=== PATIENT | male | born 1960 | race Caucasian/White ===

== ENCOUNTER 2019-10-27 15:41 | Inpatient (IN) | payer MEDICAID ==
[~2019-10-27] VITALS: Ht 167.6 cm; Wt 65.2 kg
[2019-10-27] MEDS ORDERED: ACETAMINOPHEN 500 MG TABLET ONE (16:09)
[2019-10-27] MEDS ORDERED: ACETAMINOPHEN 500 MG TABLET PO ONE (16:30)
[2019-10-27] MEDS ORDERED: SODIUM CHLORIDE FLUSH 10ML SYR IVF ONE (16:30)
[2019-10-27 16:48] LABS: BASOPHILS # (AUTO) 0.04 x10^3/uL (0-0.1); BASOPHILS % (AUTO) 0 % (0-1); EOSINOPHILS # (AUTO) 0.08 x10^3/uL (0-0.4); EOSINOPHILS % (AUTO) 1 % (1-7); LYMPHOCYTES % (AUTO) 12 % (22-44); MD NO; MEAN CORPUSCULAR HEMOGLOBIN 32.6 pg (27.5-34.5); MEAN CORPUSCULAR HGB CONC 33.4 g/dL (33.2-36.2); MEAN CORPUSCULAR VOLUME 97.6 fL (81-97); MEAN PLATELET VOLUME 8.1 fL (7.4-10.4); MONOCYTES # (AUTO) 0.58 x10^3/uL (0.2-0.8); MONOCYTES % (AUTO) 6 % (2-9); NEUTROPHILS # (AUTO) 8.49 x10^3/uL (1.8-6.8); NEUTROPHILS % (AUTO) 81 % (42-75); PLATELET COUNT 176 x10^3/uL (130-400); RED BLOOD COUNT 4.81 x10^6/uL (4.38-5.82); RED CELL DISTRIBUTION WIDTH 13.9 % (9.4-14.8)
[2019-10-27 17:01] LABS: ALANINE AMINOTRANSFERASE 98 U/L (12-78); ALBUMIN 2.8 g/dL (3.4-5.0); ANION GAP 8 mmol/L (5-15); CALCIUM 8.7 mg/dL (8.5-10.1); CHLORIDE 110 mmol/L (98-107)
[2019-10-27 17:05] LABS: ALKALINE PHOSPHATASE 139 U/L (45-117); BILIRUBIN,TOTAL 0.5 mg/dL (0.2-1.0); CREATININE 0.69 mg/dL (0.7-1.3); TOTAL PROTEIN 7.5 g/dL (6.4-8.2); TROPONIN I < 0.015 ng/mL (0.000-0.045)
--- NOTE | 2019-10-27 17:13 | NUR ---
LATE NOTE ENTRY FOR 1635: Pt presents to ED with c/o fever and chest pain with bilateral arm pain starting around 0730 today. Pt reports chest pain as intermittent with pressure "gas like" pain. Pt resting on gurney connected to NIBP cuff, continous pulse ox monitor, and quality assurance monitor final. PIV established and labs drawn. Pt has bedrails up x 2 and call light within reach. Provided medicaitons per EMAR. Urinal provided at bedside. Pt reports recent bladder surgery with UTI s/p surgery "two weeks ago" that was treated with antibiotics prescribed from urologist and finished antibiotics entirely. No needs expressed at this time. Labs pending at this time.
[2019-10-27] MEDS ORDERED: NITROGLYCERIN SINGLE TAB 0.4 MG SL PRN (17:30)
[2019-10-27] MEDS ORDERED: ASPIRIN 81 MG TABLET CHEW PO ONE (17:30)
[2019-10-27] MEDS ORDERED: NITROGLYCERIN SINGLE TAB 0.4 MG SL ONE (17:31)
[2019-10-27] MEDS ORDERED: ASPIRIN 81 MG TABLET CHEW ONE (17:31)
--- NOTE | 2019-10-27 17:39 | NUR ---
Provided medicaitons per EMAR. PT reports 02/20 "diaphragm pain when I breath deep only".
[2019-10-27] MEDS ORDERED: SODIUM CHLORIDE FLUSH 10ML SYR IVF PRN (18:30)
--- NOTE | 2019-10-27 18:51 | NUR ---
Dinner tray provided to pt. Pt appreciative.
--- NOTE | 2019-10-27 18:55 | NUR ---
Provided bedside report to CAROLINE Gutierrez. All questions answered. CAROLINE Gutierrez to assume care of pt at this time.
[2019-10-27] MEDS ORDERED: MAALOX/HYOSCYAMINE/LIDOCAINE 45 ML BTL PO ONE (20:00)
[2019-10-27] MEDS ORDERED: HEPARIN 5,000 UNITS/ML, 1ML SQ SCH (20:00)
[2019-10-27] MEDS ORDERED: NITROGLYCERIN 0.4 MG BOTTLE (25 TABS) SL PRN (20:00)
[2019-10-27] MEDS ORDERED: NITROGLYCERIN 0.4 MG/SPRAY SL PRN (20:00)
[2019-10-27] MEDS ORDERED: ENALAPRILAT 1.25 MG/ML, 2ML IVPush PRN (20:00)
--- NOTE | 2019-10-27 20:25 | NUR ---
RPT CALLED TO CAROLINE HOOKS. PT RTG.
[2019-10-27 20:46] LABS: TROPONIN I < 0.015 ng/mL (0.000-0.045)
[2019-10-27] MEDS ORDERED: FAMOTIDINE 20 MG TABLET PO SCH (21:00)
[2019-10-27] MEDS ORDERED: HEPARIN 5,000 UNITS/ML, 1ML ONE (21:22)
[2019-10-27] MEDS ORDERED: FAMOTIDINE 20 MG TABLET ONE (21:22)
[2019-10-27] MEDS ORDERED: MAALOX/HYOSCYAMINE/LIDOCAINE 45 ML BTL ONE (21:22)
[2019-10-27] MEDS ORDERED: OMNIPAQUE 350 MG/ML, 100ML BOTTLE ONE (21:27)
[2019-10-27 21:45] VITALS: BP 148/81
[2019-10-27 21:56] VITALS: BP 148/81
[2019-10-27] MEDS ORDERED: AZITHROMYCIN 500 MG TABLET PO ONE (22:00)
[2019-10-27] MEDS ORDERED: CEFTRIAXONE PMX 1GM/50ML 50 ML IV SCH (22:00)
[2019-10-27 22:12] LABS: AMPHETAMINE SCREEN, URINE Positive (Negative); BARBITURATE SCREEN, URINE Negative (Negative); BENZODIAZEPINE SCREEN, URINE Negative (Negative); CANNABINOID SCREEN, URINE Negative (Negative); COCAINE SCREEN, URINE Negative (Negative); METHADONE SCREEN, URINE Negative (Negative); OPIATE SCREEN, URINE Negative (Negative)
[2019-10-27] MEDS: IBUPROFEN 600 MG TABLET PO PRN (22:14)
[2019-10-27] MEDS: ENOXAPARIN 60 MG/0.6 ML SQ SCH (22:14)
[2019-10-27] MEDS: ZOLPIDEM 5MG TABLET PO PRN (22:40)
[2019-10-28 00:21] VITALS: BP 132/76
[2019-10-28 01:14] LABS: RAPID INFLUENZA A Negative (Negative); RAPID INFLUENZA B Negative (Negative)
[2019-10-28 02:01] LABS: TROPONIN I < 0.015 ng/mL (0.000-0.045)
[2019-10-28 06:09] LABS: ANION GAP 6 mmol/L (5-15); CALCIUM 8.7 mg/dL (8.5-10.1); CHLORIDE 110 mmol/L (98-107)
[2019-10-28 06:11] LABS: CREATININE 0.73 mg/dL (0.7-1.3)
[2019-10-28 06:12] LABS: BASOPHILS # (AUTO) 0.05 x10^3/uL (0-0.1); BASOPHILS % (AUTO) 0 % (0-1); EOSINOPHILS # (AUTO) 0.36 x10^3/uL (0-0.4); EOSINOPHILS % (AUTO) 3 % (1-7); LYMPHOCYTES # (AUTO) 3.38 x10^3/uL (1-3.4); LYMPHOCYTES % (AUTO) 27 % (22-44); MD NO; MEAN CORPUSCULAR HEMOGLOBIN 32.8 pg (27.5-34.5); MEAN CORPUSCULAR HGB CONC 33.2 g/dL (33.2-36.2); MEAN CORPUSCULAR VOLUME 98.8 fL (81-97); MEAN PLATELET VOLUME 8.4 fL (7.4-10.4); MONOCYTES # (AUTO) 0.86 x10^3/uL (0.2-0.8); MONOCYTES % (AUTO) 7 % (2-9); NEUTROPHILS # (AUTO) 8.02 x10^3/uL (1.8-6.8); NEUTROPHILS % (AUTO) 63 % (42-75); PLATELET COUNT 199 x10^3/uL (130-400); RED BLOOD COUNT 4.54 x10^6/uL (4.38-5.82); RED CELL DISTRIBUTION WIDTH 14.3 % (9.4-14.8)
[2019-10-28 07:19] VITALS: BP 109/73
[2019-10-28] MEDS ORDERED: VANCOMYCIN PER PHARMACY MC PRN (07:30)
[2019-10-28] MEDS ORDERED: PHARMACOKINETIC CONSULTATION MC ONE (09:00)
[2019-10-28] MEDS ORDERED: AZITHROMYCIN 250 MG TABLET PO SCH (09:00)
[2019-10-28] MEDS ORDERED: PHARMACOKINETIC MONITORING MC PRN (09:00)
[2019-10-28] MEDS: CEFEPIME 2 GM in DEXTROSE 5% 100 ML IV SCH ×2 (09:06→17:04)
[2019-10-28] MEDS: IBUPROFEN 600 MG TABLET PO PRN (09:07)
[2019-10-28] MEDS: ENOXAPARIN 60 MG/0.6 ML SQ SCH ×2 (09:15→20:22)
[2019-10-28] MEDS: VANCOMYCIN 1,300 MG in SODIUM CHLORIDE 0.9% 250 ML IV SCH ×2 (10:42→21:59)
[2019-10-28 11:41] LABS: HCT (SEDRATE) 44.8 % (39.2-51.8)
[2019-10-28 11:52] LABS: TROPONIN I < 0.015 ng/mL (0.000-0.045)
[2019-10-28] MEDS: NICOTINE 7 MG/24 HR PATCH.TD24 TD SCH (12:00)
[2019-10-28 14:25] VITALS: BP 114/70
[2019-10-28] MEDS: ZOLPIDEM 5MG TABLET PO PRN (20:22)
[2019-10-28 20:34] VITALS: BP 121/73
[2019-10-29] MEDS: CEFEPIME 2 GM in DEXTROSE 5% 100 ML IV SCH ×3 (00:37→17:29)
[2019-10-29 02:55] VITALS: BP 155/73
[2019-10-29 06:10] LABS: ALANINE AMINOTRANSFERASE 67 U/L (12-78); ALBUMIN 2.3 g/dL (3.4-5.0); ANION GAP 7 mmol/L (5-15); CALCIUM 8.1 mg/dL (8.5-10.1); CHLORIDE 114 mmol/L (98-107); CREATININE 0.71 mg/dL (0.7-1.3)
[2019-10-29 06:12] LABS: ALKALINE PHOSPHATASE 109 U/L (45-117); BILIRUBIN,TOTAL 0.5 mg/dL (0.2-1.0); TOTAL PROTEIN 6.7 g/dL (6.4-8.2)
[2019-10-29 06:49] LABS: BASOPHILS # (AUTO) 0.07 x10^3/uL (0-0.1); BASOPHILS % (AUTO) 1 % (0-1); EOSINOPHILS # (AUTO) 0.48 x10^3/uL (0-0.4); EOSINOPHILS % (AUTO) 5 % (1-7); LYMPHOCYTES # (AUTO) 2.39 x10^3/uL (1-3.4); LYMPHOCYTES % (AUTO) 25 % (22-44); MD NO; MEAN CORPUSCULAR HEMOGLOBIN 32.5 pg (27.5-34.5); MEAN CORPUSCULAR HGB CONC 32.7 g/dL (33.2-36.2); MEAN CORPUSCULAR VOLUME 99.4 fL (81-97); MEAN PLATELET VOLUME 9.1 fL (7.4-10.4); MONOCYTES # (AUTO) 0.69 x10^3/uL (0.2-0.8); MONOCYTES % (AUTO) 7 % (2-9); NEUTROPHILS % (AUTO) 62 % (42-75); PLATELET COUNT 168 x10^3/uL (130-400); RED BLOOD COUNT 4.48 x10^6/uL (4.38-5.82); RED CELL DISTRIBUTION WIDTH 14.1 % (9.4-14.8)
[2019-10-29 08:55] VITALS: BP 130/76
[2019-10-29] MEDS: ENOXAPARIN 60 MG/0.6 ML SQ SCH ×2 (09:50→21:03)
[2019-10-29] MEDS: VANCOMYCIN 1,300 MG in SODIUM CHLORIDE 0.9% 250 ML IV SCH ×2 (11:30→22:07)
[2019-10-29] MEDS: NICOTINE 7 MG/24 HR PATCH.TD24 TD SCH (11:33)
[2019-10-29] MEDS: ACETAMINOPHEN 325 MG TABLET PO PRN (12:43)
[2019-10-29] MEDS ORDERED: SODIUM CHLORIDE 0.9%, IRRG.SOLN 1,000 ML IRRIG ONE (13:00)
[2019-10-29 13:33] VITALS: BP 137/80
[2019-10-29] MEDS: ZOLPIDEM 5MG TABLET PO PRN (17:40)
[2019-10-29 21:55] VITALS: BP 147/76
[2019-10-29] MEDS: IBUPROFEN 600 MG TABLET PO PRN (22:14)
[2019-10-30] MEDS: CEFEPIME 2 GM in DEXTROSE 5% 100 ML IV SCH (01:01)
[2019-10-30 03:05] VITALS: BP 136/76
[2019-10-30 05:27] LABS: BASOPHILS # (AUTO) 0.13 x10^3/uL (0-0.1); BASOPHILS % (AUTO) 1 % (0-1); EOSINOPHILS # (AUTO) 0.69 x10^3/uL (0-0.4); EOSINOPHILS % (AUTO) 6 % (1-7); LYMPHOCYTES # (AUTO) 3.14 x10^3/uL (1-3.4); LYMPHOCYTES % (AUTO) 29 % (22-44); MD NO; MEAN CORPUSCULAR HEMOGLOBIN 32.6 pg (27.5-34.5); MEAN CORPUSCULAR HGB CONC 33.2 g/dL (33.2-36.2); MEAN PLATELET VOLUME 8.6 fL (7.4-10.4); MONOCYTES # (AUTO) 0.61 x10^3/uL (0.2-0.8); MONOCYTES % (AUTO) 6 % (2-9); NEUTROPHILS # (AUTO) 6.14 x10^3/uL (1.8-6.8); NEUTROPHILS % (AUTO) 57 % (42-75); PLATELET COUNT 232 x10^3/uL (130-400); RED BLOOD COUNT 4.59 x10^6/uL (4.38-5.82); RED CELL DISTRIBUTION WIDTH 14.2 % (9.4-14.8)
[2019-10-30 05:29] LABS: ALBUMIN 2.3 g/dL (3.4-5.0); ANION GAP 9 mmol/L (5-15); CHLORIDE 111 mmol/L (98-107)
[2019-10-30 05:34] LABS: ALANINE AMINOTRANSFERASE 65 U/L (12-78); ALKALINE PHOSPHATASE 115 U/L (45-117); BILIRUBIN,TOTAL 0.7 mg/dL (0.2-1.0); TOTAL PROTEIN 6.8 g/dL (6.4-8.2)
[2019-10-30 09:18] VITALS: BP 129/66
[2019-10-30] MEDS: ENOXAPARIN 60 MG/0.6 ML SQ SCH ×2 (09:35→22:16)
[2019-10-30] MEDS: AZITHROMYCIN 250 MG TABLET PO SCH (09:35)
[2019-10-30] MEDS: CEFDINIR 300 MG CAPSULE PO SCH ×2 (09:35→22:16)
[2019-10-30] MEDS: NICOTINE 7 MG/24 HR PATCH.TD24 TD SCH (12:00)
[2019-10-30 14:10] VITALS: BP 156/78
[2019-10-30] MEDS: IBUPROFEN 600 MG TABLET PO PRN (14:57)
[2019-10-30] MEDS: ZOLPIDEM 5MG TABLET PO PRN (18:45)
[2019-10-30 20:49] VITALS: BP 125/72
[2019-10-31 02:40] VITALS: BP 135/78
[2019-10-31 06:51] VITALS: BP 122/77
[2019-10-31 07:22] LABS: BASOPHILS # (AUTO) 0.02 x10^3/uL (0-0.1); BASOPHILS % (AUTO) 0 % (0-1); EOSINOPHILS # (AUTO) 0.67 x10^3/uL (0-0.4); EOSINOPHILS % (AUTO) 8 % (1-7); LYMPHOCYTES # (AUTO) 2.19 x10^3/uL (1-3.4); LYMPHOCYTES % (AUTO) 25 % (22-44); MD NO; MEAN CORPUSCULAR HEMOGLOBIN 32.8 pg (27.5-34.5); MEAN CORPUSCULAR HGB CONC 33.5 g/dL (33.2-36.2); MEAN PLATELET VOLUME 8.1 fL (7.4-10.4); MONOCYTES # (AUTO) 0.47 x10^3/uL (0.2-0.8); MONOCYTES % (AUTO) 5 % (2-9); NEUTROPHILS # (AUTO) 5.55 x10^3/uL (1.8-6.8); NEUTROPHILS % (AUTO) 62 % (42-75); PLATELET COUNT 210 x10^3/uL (130-400); RED BLOOD COUNT 4.77 x10^6/uL (4.38-5.82); RED CELL DISTRIBUTION WIDTH 14.3 % (9.4-14.8)
[2019-10-31] MEDS: ENOXAPARIN 60 MG/0.6 ML SQ SCH ×2 (09:52→21:49)
[2019-10-31] MEDS: AZITHROMYCIN 250 MG TABLET PO SCH (09:53)
[2019-10-31] MEDS: CEFDINIR 300 MG CAPSULE PO SCH ×2 (09:53→21:46)
[2019-10-31] MEDS: NICOTINE 7 MG/24 HR PATCH.TD24 TD SCH (12:00)
[2019-10-31 13:17] VITALS: BP 135/74
[2019-10-31 21:39] VITALS: BP 134/79
[2019-10-31] MEDS: ACETAMINOPHEN 325 MG TABLET PO PRN (21:46)
[2019-10-31] MEDS: ZOLPIDEM 5MG TABLET PO PRN (21:46)
[2019-11-01 04:00] VITALS: BP 128/75
[2019-11-01 05:34] LABS: BASOPHILS % (AUTO) 1 % (0-1); EOSINOPHILS # (AUTO) 0.74 x10^3/uL (0-0.4); EOSINOPHILS % (AUTO) 9 % (1-7); LYMPHOCYTES # (AUTO) 3.44 x10^3/uL (1-3.4); LYMPHOCYTES % (AUTO) 41 % (22-44); MD NO; MEAN CORPUSCULAR HEMOGLOBIN 32.7 pg (27.5-34.5); MEAN CORPUSCULAR HGB CONC 33.2 g/dL (33.2-36.2); MEAN CORPUSCULAR VOLUME 98.4 fL (81-97); MEAN PLATELET VOLUME 8.6 fL (7.4-10.4); MONOCYTES # (AUTO) 0.53 x10^3/uL (0.2-0.8); MONOCYTES % (AUTO) 6 % (2-9); NEUTROPHILS # (AUTO) 3.67 x10^3/uL (1.8-6.8); NEUTROPHILS % (AUTO) 43 % (42-75); PLATELET COUNT 243 x10^3/uL (130-400); RED BLOOD COUNT 4.74 x10^6/uL (4.38-5.82); RED CELL DISTRIBUTION WIDTH 14.2 % (9.4-14.8)
[2019-11-01 05:49] LABS: ALBUMIN 2.4 g/dL (3.4-5.0); ANION GAP 7 mmol/L (5-15); CALCIUM 8.4 mg/dL (8.5-10.1); CHLORIDE 108 mmol/L (98-107)
[2019-11-01 05:53] LABS: ALANINE AMINOTRANSFERASE 79 U/L (12-78); ALKALINE PHOSPHATASE 135 U/L (45-117); BILIRUBIN,TOTAL 0.4 mg/dL (0.2-1.0); CREATININE 0.89 mg/dL (0.7-1.3); TOTAL PROTEIN 7.3 g/dL (6.4-8.2)
[2019-11-01 08:39] VITALS: BP 105/66
[2019-11-01] MEDS: ENOXAPARIN 60 MG/0.6 ML SQ SCH ×2 (09:00→22:25)
[2019-11-01] MEDS: CEFDINIR 300 MG CAPSULE PO SCH ×2 (09:06→22:25)
[2019-11-01] MEDS: AZITHROMYCIN 250 MG TABLET PO SCH (09:06)
[2019-11-01] MEDS: NICOTINE 7 MG/24 HR PATCH.TD24 TD SCH (12:00)
[2019-11-01 17:19] VITALS: BP 135/83
[2019-11-01 21:30] VITALS: BP 101/69
[2019-11-01] MEDS: ZOLPIDEM 5MG TABLET PO PRN (22:25)
[2019-11-02 02:40] VITALS: BP 113/75
[2019-11-02 05:08] LABS: BASOPHILS # (AUTO) 0.08 x10^3/uL (0-0.1); BASOPHILS % (AUTO) 1 % (0-1); EOSINOPHILS # (AUTO) 0.65 x10^3/uL (0-0.4); EOSINOPHILS % (AUTO) 8 % (1-7); LYMPHOCYTES # (AUTO) 2.75 x10^3/uL (1-3.4); LYMPHOCYTES % (AUTO) 32 % (22-44); MD NO; MEAN CORPUSCULAR HEMOGLOBIN 32.3 pg (27.5-34.5); MEAN CORPUSCULAR HGB CONC 32.9 g/dL (33.2-36.2); MEAN CORPUSCULAR VOLUME 98.4 fL (81-97); MEAN PLATELET VOLUME 8.7 fL (7.4-10.4); MONOCYTES % (AUTO) 7 % (2-9); NEUTROPHILS # (AUTO) 4.46 x10^3/uL (1.8-6.8); NEUTROPHILS % (AUTO) 52 % (42-75); PLATELET COUNT 269 x10^3/uL (130-400); RED BLOOD COUNT 4.85 x10^6/uL (4.38-5.82); RED CELL DISTRIBUTION WIDTH 14.3 % (9.4-14.8)
[2019-11-02 05:15] LABS: ALBUMIN 2.5 g/dL (3.4-5.0); ANION GAP 5 mmol/L (5-15); CHLORIDE 109 mmol/L (98-107)
[2019-11-02 05:20] LABS: ALANINE AMINOTRANSFERASE 82 U/L (12-78); ALKALINE PHOSPHATASE 130 U/L (45-117); BILIRUBIN,TOTAL 0.7 mg/dL (0.2-1.0); TOTAL PROTEIN 7.6 g/dL (6.4-8.2)
[2019-11-02] MEDS: NICOTINE 7 MG/24 HR PATCH.TD24 TD SCH ×2 (07:24→20:03)
[2019-11-02] MEDS: CEFDINIR 300 MG CAPSULE PO SCH ×2 (08:03→20:03)
[2019-11-02] MEDS: AZITHROMYCIN 250 MG TABLET PO SCH (08:03)
[2019-11-02 08:39] VITALS: BP 120/74
[2019-11-02] MEDS: ENOXAPARIN 60 MG/0.6 ML SQ SCH ×2 (11:47→22:13)
[2019-11-02 16:51] VITALS: BP 127/73
[2019-11-02 20:00] VITALS: BP 119/71
[2019-11-02] MEDS: ZOLPIDEM 5MG TABLET PO PRN (20:06)
[2019-11-03 01:49] VITALS: BP 107/67
[2019-11-03 06:19] LABS: BASOPHILS # (AUTO) 0.12 x10^3/uL (0-0.1); BASOPHILS % (AUTO) 2 % (0-1); EOSINOPHILS # (AUTO) 0.56 x10^3/uL (0-0.4); EOSINOPHILS % (AUTO) 7 % (1-7); LYMPHOCYTES # (AUTO) 3.12 x10^3/uL (1-3.4); LYMPHOCYTES % (AUTO) 39 % (22-44); MD NO; MEAN CORPUSCULAR HEMOGLOBIN 32.8 pg (27.5-34.5); MEAN CORPUSCULAR HGB CONC 33.7 g/dL (33.2-36.2); MEAN CORPUSCULAR VOLUME 97.4 fL (81-97); MEAN PLATELET VOLUME 7.9 fL (7.4-10.4); MONOCYTES # (AUTO) 0.46 x10^3/uL (0.2-0.8); MONOCYTES % (AUTO) 6 % (2-9); NEUTROPHILS # (AUTO) 3.85 x10^3/uL (1.8-6.8); NEUTROPHILS % (AUTO) 48 % (42-75); PLATELET COUNT 256 x10^3/uL (130-400); RED BLOOD COUNT 4.81 x10^6/uL (4.38-5.82); RED CELL DISTRIBUTION WIDTH 14.1 % (9.4-14.8)
[2019-11-03 06:31] LABS: ALANINE AMINOTRANSFERASE 77 U/L (12-78); ALBUMIN 2.6 g/dL (3.4-5.0); ANION GAP 6 mmol/L (5-15); CALCIUM 8.8 mg/dL (8.5-10.1); CHLORIDE 111 mmol/L (98-107)
[2019-11-03 06:34] LABS: ALKALINE PHOSPHATASE 128 U/L (45-117); BILIRUBIN,TOTAL 0.6 mg/dL (0.2-1.0); CREATININE 0.77 mg/dL (0.7-1.3); TOTAL PROTEIN 7.6 g/dL (6.4-8.2)
[2019-11-03 08:39] VITALS: BP 128/83
[2019-11-03] MEDS: ENOXAPARIN 60 MG/0.6 ML SQ SCH (09:27)
[2019-11-03] MEDS: CEFDINIR 300 MG CAPSULE PO SCH ×2 (09:27→21:22)
[2019-11-03 12:02] VITALS: BP 114/67
[2019-11-03 19:09] VITALS: BP 126/71
[2019-11-03] MEDS: ZOLPIDEM 5MG TABLET PO PRN (21:22)
[2019-11-04 01:45] VITALS: BP 120/78
[2019-11-04 06:58] VITALS: BP 126/74
[2019-11-04] MEDS ORDERED: ONDANSETRON 2MG/ML, 2ML ONE (08:40)
[2019-11-04] MEDS ORDERED: CEFAZOLIN 1,000 MG ONE (08:40)
[2019-11-04] MEDS ORDERED: PROPOFOL 10 MG/ML, 20ML ONE (08:40)
[2019-11-04] MEDS ORDERED: DEXAMETHASONE 4 MG/ML, 1ML ONE (08:40)
[2019-11-04] MEDS ORDERED: PROMETHAZINE 25 MG/ML, 1ML IV PRN (09:00)
[2019-11-04] MEDS ORDERED: LABETALOL 5MG/ML, 20ML IV PRN (09:00)
[2019-11-04] MEDS ORDERED: HYDROmorphone 2 MG/ML, 1ML IVPush PRN (09:00)
[2019-11-04] MEDS ORDERED: MEPERIDINE/PF 25MG/ML,1ML IVPush PRN (09:00)
[2019-11-04] MEDS ORDERED: FENTANYL PF 100 MCG/2ML IV PRN (09:00)
[2019-11-04] MEDS ORDERED: hydrALAzine 20 MG/ML, 1ML IV PRN (09:00)
[2019-11-04] MEDS ORDERED: OXYcodone 5 MG/5 ML ORAL.SOL UDC PO PRN (09:00)
[2019-11-04] MEDS ORDERED: HALOPERIDOL 5 MG/ML IV PRN (09:00)
[2019-11-04] MEDS ORDERED: NICOTINE 7 MG/24 HR PATCH.TD24 TD SCH (11:30)
[2019-11-04] MEDS ORDERED: ONDANSETRON 2MG/ML, 2ML IV PRN (11:30)
[2019-11-04] MEDS ORDERED: DIPHENHYDRAMINE 50 MG/ML, 1ML IV PRN (11:30)
[2019-11-04] MEDS ORDERED: HYDROcodone/APAP 5/325 TABLET PO PRN (11:30)
[2019-11-04 14:09] VITALS: BP 115/70
[2019-11-04 20:00] VITALS: BP 142/72
[2019-11-04] MEDS ORDERED: CEFDINIR 300 MG CAPSULE PO SCH (21:00)
[2019-11-04] MEDS: ENOXAPARIN 60 MG/0.6 ML SQ SCH (21:38)
[2019-11-04] MEDS: ZOLPIDEM 5MG TABLET PO PRN (21:54)
[2019-11-05 03:00] VITALS: BP 149/85
[2019-11-05 06:16] LABS: ANION GAP 6 mmol/L (5-15); CALCIUM 8.8 mg/dL (8.5-10.1); CHLORIDE 109 mmol/L (98-107); CREATININE 0.89 mg/dL (0.7-1.3)
[2019-11-05 07:21] LABS: MEAN CORPUSCULAR HEMOGLOBIN 33.1 pg (27.5-34.5); MEAN CORPUSCULAR HGB CONC 33.9 g/dL (33.2-36.2); MEAN CORPUSCULAR VOLUME 97.8 fL (81-97); MEAN PLATELET VOLUME 7.9 fL (7.4-10.4); PLATELET COUNT 243 x10^3/uL (130-400); RED BLOOD COUNT 4.29 x10^6/uL (4.38-5.82); RED CELL DISTRIBUTION WIDTH 13.8 % (9.4-14.8)
[2019-11-05 07:49] LABS: MD SCAN
[2019-11-05 07:50] LABS: BASOPHILS % (AUTO) 0 % (0-1); EOSINOPHILS % (AUTO) 0 % (1-7); LYMPHOCYTES # (AUTO) 1.95 x10^3/uL (1-3.4); LYMPHOCYTES % (AUTO) 11 % (22-44); MONOCYTES # (AUTO) 0.56 x10^3/uL (0.2-0.8); MONOCYTES % (AUTO) 3 % (2-9); NEUTROPHILS # (AUTO) 15.93 x10^3/uL (1.8-6.8); NEUTROPHILS % (AUTO) 86 % (42-75)
[2019-11-05] MEDS ORDERED: AZITHROMYCIN 250 MG TABLET PO SCH (09:00)
[2019-11-05] MEDS: ENOXAPARIN 60 MG/0.6 ML SQ SCH (09:12)
[2019-11-05 09:32] VITALS: BP 133/73
[2019-11-05] MEDS ORDERED: ENOX60DI3 SQ (12:44)
[2019-11-05 12:52] VITALS: BP 144/75
== END 2019-11-05 14:27 | disposition home or self-care (01) | DRG 668 ==
LOC: ED 18:29 → EDIP 18:30 → INTOOBSV 18:30 → ED 18:34 → 5SO 21:42 → OBSVTOIN 10-29 08:41 → DCLOUNGE 11-05 14:18
PROVIDERS: ADMIT Family Medicine; ATTEND Family Medicine
PROC: 0TBB8ZX Excision of Bladder, Via Natural or Artificial Opening Endoscopic, Diagnostic (ICD-10-PCS; principal; 2019-11-04 09:00)
DX: D49.4 Neoplasm of unspecified behavior of bladder (principal); I26.99 Other pulmonary embolism without acute cor pulmonale; J18.9 Pneumonia, unspecified organism; R31.0 Gross hematuria; I07.1 Rheumatic tricuspid insufficiency; F19.11 Other psychoactive substance abuse, in remission; B19.20 Unspecified viral hepatitis C without hepatic coma; F15.90 Other stimulant use, unspecified, uncomplicated; F17.210 Nicotine dependence, cigarettes, uncomplicated; N40.0 Benign prostatic hyperplasia without lower urinary tract symptoms; Z79.01 Long term (current) use of anticoagulants; Z85.51 Personal history of malignant neoplasm of bladder; Z87.442 Personal history of urinary calculi
CPT/HCPCS: 36415; 71045; 71275; 80048; 80053; 80307; 83605; 84145; 84484; 85025; 85651; 86140; 86704; 86705; 86706; 86707; 86803; 87040; 87340; 87350; 87400; 87522; 88307; 93005; 93306; 99285; G0378; J0690; J0696; J1100; J1644; J1650; J2405; J2704; J3010; J3370; Q9967; J7050

== ENCOUNTER 2021-04-18 20:02 | Emergency (ER) | payer MEDICAID ==
[~2021-04-18] VITALS: Ht 167.6 cm; Wt 68.0 kg
[~2021-04-18 20:02] MED LIST: ENOX60DI3 SQ
[2021-04-18 21:36] LABS: BASOPHILS % (AUTO) 1 % (0-1); EOSINOPHILS % (AUTO) 4 % (1-7); LYMPHOCYTES % (AUTO) 20 % (22-44); MEAN CORPUSCULAR HEMOGLOBIN 33.2 pg (27.5-34.5); MEAN CORPUSCULAR HGB CONC 34.5 g/dL (33.2-36.2); MEAN PLATELET VOLUME 8.2 fL (7.4-10.4); MONOCYTES % (AUTO) 7 % (2-9); NEUTROPHILS % (AUTO) 69 % (42-75); PLATELET COUNT 152 x10^3/uL (130-400); RED BLOOD COUNT 4.09 x10^6/uL (4.38-5.82); RED CELL DISTRIBUTION WIDTH 17.4 % (9.4-14.8)
[2021-04-18 21:49] LABS: ALANINE AMINOTRANSFERASE 125 U/L (12-78); ANION GAP 5 mmol/L (5-15); CALCIUM 8.3 mg/dL (8.5-10.1); CHLORIDE 112 mmol/L (98-107); CREATININE 0.74 mg/dL (0.7-1.3)
[2021-04-18 21:53] LABS: ALKALINE PHOSPHATASE 226 U/L (45-117); BILIRUBIN,TOTAL 1.3 mg/dL (0.2-1.0); TOTAL PROTEIN 7.4 g/dL (6.4-8.2); TROPONIN I < 0.015 ng/mL (0.000-0.045)
[2021-04-19 00:33] VITALS: BP 175/83
== END 2021-04-19 00:51 | disposition home or self-care (01) ==
LOC: ED 23:45
DX: B19.20 Unspecified viral hepatitis C without hepatic coma (principal); E88.09 Other disorders of plasma-protein metabolism, not elsewhere classified; R60.0 Localized edema; F15.10 Other stimulant abuse, uncomplicated; R94.5 Abnormal results of liver function studies; R94.31 Abnormal electrocardiogram [ECG] [EKG]; Z72.9 Problem related to lifestyle, unspecified; R07.9 Chest pain, unspecified
CPT/HCPCS: 36415; 71045; 80053; 83880; 84484; 85025; 93005; 93970; 99285

== ENCOUNTER 2021-05-01 11:35 | Emergency (ER) | payer MEDICAID ==
[~2021-05-01] VITALS: Ht 167.6 cm; Wt 70.3 kg
--- NOTE | 2021-05-01 12:01 | NUR ---
PT IN ROOM, BUT IS STILL WORKING ON GETTING INTO [facility]. MARGUERITE.
--- NOTE | 2021-05-01 12:11 | NUR ---
PA BEDSIDE W/ PATIENT
--- NOTE | 2021-05-01 12:25 | NUR ---
PT IS HERE FOR C/O OF WORSENING BILATERAL HAND/FEET SWELLING AND PERSISTENT DRY COUGH. PT DENIES N/T, CMS INTACT. PT PLACED ON BP AND SPO2 MONITOR, AT THIS TIME WILL RETURN AFTER XRAY TO PLACE PT ON [employer] PT STILL HAD HIS SHIRT ON. LEVI EVERETT.
[2021-05-01 12:27] LABS: BASOPHILS % (AUTO) 1 % (0-1); EOSINOPHILS % (AUTO) 3 % (1-7); LYMPHOCYTES % (AUTO) 23 % (22-44); MEAN CORPUSCULAR HEMOGLOBIN 33.8 pg (27.5-34.5); MEAN CORPUSCULAR HGB CONC 34.4 g/dL (33.2-36.2); MEAN PLATELET VOLUME 7.7 fL (7.4-10.4); MONOCYTES % (AUTO) 10 % (2-9); NEUTROPHILS % (AUTO) 63 % (42-75); PLATELET COUNT 214 x10^3/uL (130-400); RED BLOOD COUNT 3.63 x10^6/uL (4.38-5.82); RED CELL DISTRIBUTION WIDTH 18.5 % (9.4-14.8)
[2021-05-01 12:38] LABS: ALANINE AMINOTRANSFERASE 85 U/L (12-78); ALBUMIN 1.7 g/dL (3.4-5.0); ANION GAP 4 mmol/L (5-15); CALCIUM 7.8 mg/dL (8.5-10.1); CHLORIDE 110 mmol/L (98-107); CREATININE 0.66 mg/dL (0.7-1.3)
[2021-05-01 12:43] LABS: ALKALINE PHOSPHATASE 163 U/L (45-117); BILIRUBIN,TOTAL 1.4 mg/dL (0.2-1.0)
--- NOTE | 2021-05-01 13:23 | NUR ---
PT RESTING IN [facility], DENIES ANY NEED AT THIS TIME. NADN, CALL LIGHT W/IN REACH.
[2021-05-01 14:37] VITALS: BP 141/71
--- NOTE | 2021-05-01 14:38 | NUR ---
PT SLEEPING ON MARGUERITE SAUCEDO. CALL LIGHT W/IN REACH.
--- NOTE | 2021-05-01 15:10 | NUR ---
Patient given discharge instructions and they have confirmed that they understand the instructions. Patient ambulatory with steady gait. Calling friend to come pick him up.
--- NOTE | 2021-05-01 15:35 | NUR ---
PT ASKED ABOUT A PRESCRIPTION, DR. VALLADARES PRINTED OUT PRESCRIPTION FOR INHALER, REVIEWED W/ PT. PT WALKED TO ADMITTING TO BE DC'D.
== END 2021-05-01 15:37 | disposition home or self-care (01) ==
LOC: ED 12:32
DX: R60.0 Localized edema (principal); R07.89 Other chest pain; E88.09 Other disorders of plasma-protein metabolism, not elsewhere classified; D53.9 Nutritional anemia, unspecified; R74.01 Elevation of levels of liver transaminase levels; E80.6 Other disorders of bilirubin metabolism; K73.9 Chronic hepatitis, unspecified; Z85.51 Personal history of malignant neoplasm of bladder
CPT/HCPCS: 36415; 71045; 80053; 83880; 85025; 93005; 99285